=== PATIENT | male | born 1960 | race Caucasian/White ===

== ENCOUNTER 2024-06-02 10:30 | Outpatient (CLI) | payer BC, SELFPAY ==
--- NOTE | 2024-06-02 10:56 | XRR_ITS ---
PROCEDURE INFORMATION: Exam: XR Right Knee Exam date and time: 06/02/2024 11:03 AM Age: 64 years old Clinical indication: Prior surgery; Surgery date: 6+ months; Surgery type: Vein ablation right leg; RT anterior knee pain x 1 year. PT was standing on a wheel on a truck and it started hurting; Additional info: Sarmad pain right TECHNIQUE: Imaging protocol: Radiologic exam of the right knee. Views: 3 views. COMPARISON: No relevant prior studies available. FINDINGS: Bones/joints: Tiny patellar enthesophytes. Moderate enthesophyte from the anterior tibial tuberosity. Otherwise, unremarkable. Soft tissues: Otherwise, unremarkable. XR/XR knee RT 3V* [id number] IMPRESSION: No acute findings.
== END 2024-06-02 10:31 | disposition home or self-care (01) ==
PROVIDERS: PCP Family Medicine; Visit Provider Family Medicine
DX: M25.561 Pain in right knee (principal); M76.891 Other specified enthesopathies of right lower limb, excluding foot
CPT/HCPCS: 73562

== ENCOUNTER 2024-07-15 09:13 | Day surgery (SDC) | payer BC, SELFPAY ==
[2024-07-15 09:38] VITALS: BP 123/101; PULSE 100; RESP 16; TEMP 36.4; O2SAT 98; BMI 42.4
[2024-07-15] MEDS: sodium chloride 0.9% 1,000 ML 15 ML IV (10:02)
--- NOTE | 2024-07-15 10:05 | ANES.PREANE2 ---
Pre-Anesthetic Assessment Height/Weight: Height 1.65 m Weight 115.666 kg Temp Pulse Resp BP Pulse Ox O2 Del Method 97.5 F L 100 16 123/101 98 Room Air 07/15/24 09:38 07/15/24 09:38 07/15/24 09:38 07/15/24 09:38 07/15/24 09:38 07/15/24 09:38 Operation Date: 07/15/24 10:30 Proposed Procedures p [id number] Z12.11(Not Applicable) - Augustus Walsh MD Last intake: Intake Last Liquid Date 07/14/24 Last Liquid Time 08:00 Last Solid Date 07/13/24 Last Solid Time 16:00 Social No alcohol and No tobacco Exam alert, oriented x 3, clear to auscultation bilaterally and regular rate & rhythm Airway Submandibular: within normal limits Cervical ROM: within normal limits Mallampati: Class I Dentition: chipped History/ROS No significant history except as noted and No significant complaints Pulmonary Sleep Apnea CV/HEM Atrial Fibrillation, Coronary Artery Disease, Congestive Heart Failure and Hypertension paced at 60; [facility] MRI safe recent bilateral flank pain, going to see urology in 2 days Metabolic Hyperlipidemia and Morbid Obesity pre DM2 Musc/skel right knee chronic pain; has known bone spurs and possible torn ligament on right knee Neuropsych None reported Anesthetic Plan ASA status: 3 Anesthesia: Anesthesia Evaluation and MAC Medications/Allergies Home Medications ?Medication ?Instructions ?Recorded ?Confirmed ?Last Taken ?Type ezetimibe 10 mg tablet 10 mg PO DAILY 06/16/24 07/09/24 07/14/24 History furosemide 20 mg tablet 20 mg PO DAILY 06/16/24 07/09/24 07/14/24 History meloxicam 7.5 mg tablet 7.5 mg PO PRN PRN pain 06/16/24 07/09/24 07/14/24 History tamsulosin 0.4 mg capsule 0.4 mg PO DAILY 06/16/24 07/09/24 07/14/24 History Allergies Allergy/AdvReac Type Severity Reaction Status Date / Time No Known Allergies Allergy Verified 07/15/24 09:36 Current Medications Generic Name Dose Route Start Last Admin Trade Name Freq PRN Reason Stop Dose Admin Sodium Chloride 1,000 mls @ 15 mls/hr 07/15/24 09:25 07/15/24 10:02 Sodium Chloride 0.9% IV 07/16/24 09:24 15 mls/hr .Q24H PRN Administration COLONOSCOPY FLUIDS PFSH Anesthesia Social History Smoking and tobacco/nicotine status: never used tobacco/nicotine
--- NOTE | 2024-07-15 10:11 | W.PM.OPSUD ---
Surgery/Procedure H&P Update DATE OF PROCEDURE: July 15, 2024 DATE H&P PERFORMED: 06/16/24 H&P UPDATE INFORMATION: I have reviewed H&P completed within last 30 days, I have examined patient prior to procedure and No changes to prior documentation PLANNED PROCEDURE: Operation Date: 07/15/24 10:30 Proposed Procedures p [id number] G0121 Z12.11(Not Applicable) - Augustus Walsh MD
[2024-07-15 10:52] VITALS: BP 126/80; PULSE 94; RESP 16; TEMP 36.3; O2SAT 96
[2024-07-15 11:00] VITALS: BP 112/85; PULSE 95; RESP 18; O2SAT 97
[2024-07-15 11:10] VITALS: BP 122/78; PULSE 97; RESP 18; O2SAT 97
--- NOTE | 2024-07-15 11:31 | ANE.PACU2 ---
Inpatient post-anesthesia follow up: Airway intact: Yes Vital signs: Temperature 97.4 F Pulse Rate 97 Respiratory Rate 18 Blood Pressure 122/78 Pulse Oximetry 97 Oxygen Delivery Me thod Room Air Oxygen Flow Rate Fraction of Inspir ed Oxygen Hydration adequate: Yes Nausea and vomiting: No Pain level: 1 Mental status: Baseline
== END 2024-07-15 11:31 | disposition home or self-care (01) ==
PROVIDERS: PCP Family Medicine; Visit Provider Student in an Organized Health Care Education/Training Program
PROC: 0DJD8ZZ Inspection of Lower Intestinal Tract, Via Natural or Artificial Opening Endoscopic (ICD-10-PCS; CPT 45378; principal; 2024-07-15 10:30)
DX: Z12.11 Encounter for screening for malignant neoplasm of colon (principal); D12.2 Benign neoplasm of ascending colon; E78.5 Hyperlipidemia, unspecified; I48.91 Unspecified atrial fibrillation; I25.10 Atherosclerotic heart disease of native coronary artery without angina pectoris; I11.0 Hypertensive heart disease with heart failure; I50.9 Heart failure, unspecified; E66.01 Morbid (severe) obesity due to excess calories; Z68.41 Body mass index [BMI] 40.0-44.9, adult; Z79.899 Other long term (current) drug therapy
CPT/HCPCS: 45385; 88305; J2704; J7030

== ENCOUNTER → 2024-07-29 12:31 | Outpatient (BNVA) | payer BC, SELFPAY | PROVIDERS: PCP Family Medicine; Visit Provider Internal Medicine | DX: R07.9 Chest pain, unspecified (principal); I48.91 Unspecified atrial fibrillation; R94.31 Abnormal electrocardiogram [ECG] [EKG] | CPT/HCPCS: 93005 ==

== ENCOUNTER 2024-08-12 09:48 | Outpatient (CLI) | payer BC, SELFPAY ==
--- NOTE | 2024-08-12 10:00 | USCV_ITS ---
Tong Bhakta Age: 64 Gender: M : 1960 Exam Date: 08/12/2024 10:05 Ordering Phys: David Artis M.D ([email or web address]) Technologist: SONY Exam Location: [facility] [place] Indication: CP, SoB BP: 122 / 76 HR: 79 Rhythm: Sinus Technical Quality: Adequate MEASUREMENTS (Male / Female) Normal Values 2D ECHO LV Diastolic Diameter PLAX 5.0 cm 4.2 - 5.9 / 3.9 - 5.3 cm IVS Diastolic Thickness 1.4 cm 0.6 - 1.0 / 0.6 - 0.9 cm IVS Systolic Thickness 2.1 cm LVPW Diastolic Thickness 1.2 cm 0.6 - 1.0 / 0.6 - 0.9 cm LVPW Systolic Thickness 1.7 cm LVOT Diameter 2.0 cm LV Ejection Fraction 2D Teich 58.8 % LV Ejection Fraction MOD 4C 68.3 % LV Ejection Fraction MOD 2C 50.6 % LV Ejection Fraction 2C AL 51.0 % LA Diameter 2.8 cm RA Systolic Volume 4C AL 57.0 ml RA Systolic Volume 4C MOD 52.4 ml LA Sys Volume AL 49.2 cm cubed LA Sys Volume Index AL 21.0 cm cubed/m squared Aorta at Sinotubular Diameter 2.8 cm IVC Diameter 1.9 cm M-MODE LA Ao Ratio MM 1.5 AV Cusp Separation MM 1.8 cm DOPPLER AV Peak Velocity 117.0 cm/s LVOT Peak Velocity 66.0 cm/s AV Area Cont Eq vti 1.8 cm squared AV Area Cont Eq pk 1.8 cm squared MV Peak Velocity 96.0 cm/s MV Area PHT 5.0 cm squared Mitral E to A Ratio 4.4 TR Peak Velocity 111.0 cm/s TR Peak Gradient 4.9 mmHg TV Peak E Velocity 91.0 cm/s FINDINGS Left Ventricle Left ventricle is normal in size. LV systolic function is mildly reduced with EF of 45 to 50%. Mild global hypokinesis. Right Ventricle Normal in size and function Right Atrium Normal in size Left Atrium Normal in size Mitral Valve Mild mitral annular calcification. Trace mitral regurgitation Aortic Valve Grossly normal. No significant stenosis or regurgitation. Tricuspid Valve Insufficient TR jet to evaluate RVSP. Pulmonic Valve Not well-visualized Pericardium Normal Aorta Normal in size IVC Appears to be normal CONCLUSIONS LV systolic function is mildly reduced with EF of 45-50%. Trace mitral regurgitation No comparison studies are available. David Artis MD (Electronically Signed) Final Date: 23 August 2024 20:54 S
== END 2024-08-12 09:49 | disposition home or self-care (01) ==
LOC: RAD 09:51
PROVIDERS: PCP Family Medicine; Visit Provider Internal Medicine
DX: R07.9 Chest pain, unspecified (principal); R06.02 Shortness of breath; I51.89 Other ill-defined heart diseases; I34.81 Nonrheumatic mitral (valve) annulus calcification
CPT/HCPCS: 93306